=== PATIENT | female | born 1945 | race Caucasian/White ===

== ENCOUNTER 2019-02-07 14:06 | Outpatient (RCR) | payer MEDICARE, BC ==
[~2019-02-07 14:06] MED LIST: ADV500INH INH; ALBU83IN INH; AMLO10TA5 PO; ATIV1TAB10 PO; CELE40TA PO; HYDR200T3 PO; IRBE300T10 PO; LEVO88TA3 PO; OMEP-218 PO; PANT40TA3 PO; PROC10TA4 PO; TRIA37.53 PO; XARE20TA PO
== END 2019-02-13 ==
LOC: M PR 14:06
DX: J43.2 Centrilobular emphysema (principal)
CPT/HCPCS: G0424 ×2